=== PATIENT | male | born 1965 | race African-American/Black ===

== ENCOUNTER 2024-01-27 10:17 | Emergency (ER) | payer SELFPAY ==
[2024-01-27] MEDS ORDERED: ONDANSETRON 4 MG/2 ML VIAL ONE (10:28)
[2024-01-27] MEDS ORDERED: KETOROLAC 30 MG/ML INJ ONE (10:28)
[2024-01-27 10:35] LABS: Absolute Lymphocytes (CBC) 0.6 K/uL (0.7-4.9); Absolute Monocytes 0.2 K/uL (0.1-1.3); Absolute Neutrophil 4.7 K/uL (1.8-8.0); Basophils % 0.6 % (0-1.3); Eosinophils % 0.6 % (0-4.4); Hematocrit 39.2 % (39.6-49.0); Hemoglobin 12.5 g/dL (13.6-17.9); Lymphocytes % 10.8 % (15.3-44.8); MCH 26.3 pg (27.0-35.0); MCHC 31.9 g/dL (32.0-36.0); MCV 82.5 fL (80-100); MPV 7.3 fL (7.6-11.3); Monocytes % 4.2 % (3.3-12.3); Neutrophils % 83.8 % (41.7-73.7); Platelets 287 thou/uL (152-406); RBC Red Blood Cell Count 4.74 M/uL (4.33-5.43); Red Cell Distribution Width 13.7 % (12.1-15.2)
[2024-01-27 10:51] LABS: Albumin 3.7 g/dL (3.4-5.0); Anion Gap 7.3 mEq/L (5.0-15.0); Bilirubin Total 0.5 mg/dL (0.2-1.0); Globulin 3.6 g/dL (2.3-3.5); Potassium 3.3 mEq/L (3.5-5.1); Protein, Total 7.3 g/dL (6.4-8.2)
--- NOTE | 2024-01-27 10:54 | RAD REPORT ---
EXAMINATION: CT ABDOMEN AND PELVIS WITHOUT CONTRAST CLINICAL INDICATION: Abdominal pain TECHNIQUE: CT abdomen and pelvis was performed, as per department protocol. IV contrast and oral was not administered.Axial, sagittal and coronal reconstructions were obtained. One or more of the following dose reduction techniques were used: Automated exposure control, adjustment of the mA and/o r kV according to the patient size, and/or iterative reconstruction. Unless otherwise specified, incidental findings do not require dedicated imaging follow-up. [id number]. COMPARISON: No prior exam. FINDINGS: The lack of intravenous and oral contrast limits evaluation of solid organs, vessels and bowel. The liver, spleen, pancreas, and adrenals appear grossly normal. Multiple, bilateral renal calculi. No right hydronephrosis. Tiny low-density areas within the right kidney probably cysts. 6.3 cm cystic mass left kidney contains peripheral calcification. Mild left hydronephrosis. Left perirenal stranding and ill-defined fluid likely pyelosinus extravasat ion.. 4 mm calculus distal left ureter near the UVJ. Several small bladder calculi. No evidence of diverticulitis IMPRESSION: 4 mm calculus distal left ureter near the UVJ with mild left hydronephrosis. 6.3 cm cystic mass left kidney. Nonemergent renal ultrasound recommended
[2024-01-27 12:08] LABS: Sqamous Epithelial <5 /HPF (None Seen); Urine Bacteria None Seen /HPF (<20); Urine Bilirubin NEGATIVE (Negative); Urine Blood 1+ (Negative); Urine Clarity Clear (Clear); Urine Color Light-Yellow (Yellow); Urine Culture Reflex Order NOT NEEDED; Urine Glucose 2+ (Negative); Urine Ketones NEGATIVE (Negative); Urine Microscopic Reflex YN ORDER UMIC; Urine Mucus Slight /HPF (None Seen); Urine Nitrite NEGATIVE (Negative); Urine Protein NEGATIVE (Negative); Urine RBC 21-50 /HPF (None Seen); Urine Urobilinogen Normal (Normal); Urine WBC <5 /HPF (<5); Urine pH 6.5 (5.0-7.0)
[2024-01-27 12:13] LABS: Barbiturates NEGATIVE (NEGATIVE); Benzodiazepines NEGATIVE (NEGATIVE); Cocaine NEGATIVE (NEGATIVE); METHAMPHETAM NEGATIVE (NEGATIVE); Methadone NEGATIVE (NEGATIVE); Opiates NEGATIVE (NEGATIVE); Phencyclidine NEGATIVE (NEGATIVE); THC Cannibis NEGATIVE (NEGATIVE)
--- NOTE | 2024-01-27 12:16 | ER ---
Nurse's Notes [facility] Name: Jc Lombardi Jr Age: 58 yrs Sex: Male : 1965 Arrival Date: 01/27/2024 Time: 10:17 Bed 8 Private MD: Diagnosis: Ureterolithiasis, renal colic, left flank pain Presentation: 01/26 10:19 Chief complaint: EMS states: "toned out for sudden onset of lower back pain that mb9 radiates to LLQ. Pt also N/V.". Coronavirus screen: Vaccine status: Patient reports being unvaccinated. Ebola Screen: No symptoms or risks identified at this time. Initial Sepsis Screen: Does the patient meet any 2 criteria? No. Patient's initial sepsis screen is negative. Does the patient have a suspected source of infection? No. Patient's initial sepsis screen is negative. Risk Assessment: Do you want to hurt yourself or someone else? Patient reports no desire to harm self or others. Onset of symptoms was January 27, 2024. 10:19 Acuity: WADE 3 mb9 10:19 Method Of Arrival: EMS: [facility] mb9 Triage Assessment: 10:20 General: Appears uncomfortable, Behavior is anxious. Pain: Complains of pain in back mb9 Pain radiates to abdomen Pain at worst was 10 out of 10 on a pain scale. Quality of pain is described as throbbing, Pain began suddenly, Is continuous. EENT: No signs and/or symptoms were reported regarding the EENT system. Neuro: Mcnulty Agitation-Sedation Scale (RASS): 0 - Alert and Calm Level of Consciousness is awake, alert, obeys commands, Oriented to person, place, time, situation, Appropriate for age. Cardiovascular: Patient's skin is warm and dry. Respiratory: Airway is patent Respiratory effort is even, unlabored, Respiratory pattern is regular, symmetrical. GI: Abdomen is flat, non-distended, Bowel sounds present X 4 quads. : No signs and/or symptoms were reported regarding the genitourinary system. Derm: Skin is pink, warm \\T\\ dry. Musculoskeletal: Range of motion: intact in all extremities. Historical: - Allergies: 10:20 No Known Allergies; mb9 - Home Meds: 10:20 aspirin 81 mg Oral capsule [Active]; mb9 - PMHx: 10:20 None; mb9 - PSHx: 10:20 None; mb9 - Immunization history:: Adult Immunizations up to date. - Infectious Disease History:: Denies. - Social history:: Smoking status: Patient reports use of chewing tobacco. Screenin:25 [facility] ED Fall Risk Assessment (Adult) History of falling in the last 3 months, mb9 including since admission No falls in past 3 months (0 pts) Confusion or Disorientation No (0 pts) Intoxicated or Sedated No (0 pts) Impaired Gait No (0 pts) Mobility Assist Device Used No (0 pt) Altered Elimination No (0 pt) Score/Fall Risk Level 0 - 2 = Low Risk Oriented to surroundings, Maintained a safe environment, Educated pt \\T\\ family on fall prevention, incl call for assistance when getting out of bed. Abuse screen: Denies threats or abuse. Nutritional screening: No deficits noted. Tuberculosis screening: No symptoms or risk factors identified. Assessment: 10:22 Reassessment: see triage assessment. mb9 10:22 General: pt drowsy and states pain feels better all of a sudden. ERP notified.. mb9 11:30 Reassessment: Patient appears in no apparent distress at this time. Patient and/or mb9 family updated on plan of care and expected duration. Pain level reassessed. Patient states feeling better. Patient states symptoms have improved. 12:24 Reassessment: No changes from previously documented assessment. Patient and/or family mb9 updated on plan of care and expected duration. Pain level reassessed. Patient is alert, oriented x 3, equal unlabored respirations, skin warm/dry/pink. Vital Signs: 10:19 BP 174 / 89; Pulse 59; Resp 15; Temp 97.6; Pulse Ox 100% ; Weight 83.91 kg; Height 5 mb9 ft. 7 in. ; Pain 10/10; 11:24 BP 153 / 77; Pulse 60; Resp 16; Pulse Ox 98% on R/A; mb9 12:25 BP 145 / 79; Pulse 62; Resp 16; Pulse Ox 100% on R/A; mb9 10:19 Body Mass Index 28.97 (83.91 kg, 170.18 cm) mb9 10:19 Pain Scale: Adult mb9 ED Course: 10:18 Patient arrived in ED. mb9 10:18 Arm band placed on. mb9 10:19 Megha Young MD is Attending Physician. sp3 10:20 Triage completed. mb9 10:20 Selam Peraza, RN is Primary Nurse. mb9 10:22 Initial lab(s) drawn, by me, sent to lab. Inserted saline lock: 20 gauge in right mb9 antecubital area, using aseptic technique. Blood collected. Flushed with 10 mL NS. 10:25 Bed in low position. Call light in reach. Side rails up X 1. Provided Education on: mb9 press call light if needing anything. Client placed on continuous cardiac and pulse oximetry monitoring. NIBP monitoring applied. 10:40 CT Abd/Pelvis - Without Contrast In Process Unspecified. EDMS 12:15 Skyler Agustin MD is Referral Physician. sp3 12:25 No provider procedures requiring assistance completed. IV discontinued, intact, mb9 bleeding controlled, No redness/swelling at site. Pressure dressing applied. Administered Medications: 10:30 Drug: Ondansetron IVP 4 mg IVP once; over 2 minutes Route: IVP; Site: right antecubital;mb9 11:47 Follow up: Response: No adverse reaction mb9 10:36 Drug: TORadol - Ketorolac IVP 15 mg IVP once Route: IVP; Site: right antecubital; mb9 11:47 Follow up: Response: No adverse reaction mb9 Medication: 12:25 VIS not applicable for this client. mb9 Outcome: 12:15 Discharge ordered by . sp3 12:25 Discharged to home ambulatory, mb9 12:25 Condition: stable 12:25 Discharge instructions given to patient, Instructed on discharge instructions, follow up and referral plans. Demonstrated understanding of instructions, follow-up care, medications, Prescriptions given X 2, 12:25 Patient left the ED. mb9 Signatures: Dispatcher [employer] EDIL Megha Young MD MD sp3 Selam Peraza, RN RN mb9
--- NOTE | 2024-01-27 12:16 | EDPHYS ---
Physician Documentation [facility] Name: Jc Lombardi Jr Age: 58 yrs Sex: Male : 1965 Arrival Date: 01/27/2024 Time: 10:17 Bed 8 Private MD: ED Physician Megha Young HPI: 01/26 10:32 This 58 yrs old Male presents to ER via EMS with complaints of Back Pain. sp3 10:32 58-year-old male with no past medical history presents with low back pain and sp3 left-sided flank pain since early this morning. EMS was activated to find patient complaining of the symptoms which then progressed to writhing pain and has now returned back to pain without significant movement on the patient's part. Patient is interactive but minimally so and presents with an odd affect. Therefore review of systems, history and physical are limited due to the circumstances. Limited conversation yields patient denying fever, headache, neck pain, chest pain, shortness of breath, rash, syncope, drug use, alcohol use, travel history, known sick contacts, or any other signs or symptoms on ROS at this time. He denies having prior kidney stone or any urinary complaints.. Historical: - Allergies: 10:20 No Known Allergies; mb9 - Home Meds: 10:20 aspirin 81 mg Oral capsule [Active]; mb9 - PMHx: 10:20 None; mb9 - PSHx: 10:20 None; mb9 - Immunization history:: Adult Immunizations up to date. - Infectious Disease History:: Denies. - Social history:: Smoking status: Patient reports use of chewing tobacco. ROS: 10:33 Unable to obtain ROS due to patient being uncooperative, sp3 Exam: 10:33 Constitutional: This is a well developed, well nourished patient who is awake, alert, sp3 and in no acute distress. Head/Face: Normocephalic, atraumatic. Neck: Trachea midline, no thyromegaly or masses palpated, and no cervical lymphadenopathy. Supple, full range of motion without nuchal rigidity, or vertebral point tenderness. No Meningismus. Chest/axilla: Normal chest wall appearance and motion. Nontender with no deformity. No lesions are appreciated. Cardiovascular: Regular rate and rhythm with a normal S1 and S2. No gallops, murmurs, or rubs. Normal PMI, no JVD. No pulse deficits. Respiratory: Lungs have equal breath sounds bilaterally, clear to auscultation and percussion. No rales, rhonchi or wheezes noted. No increased work of breathing, no retractions or nasal flaring. Skin: Warm, dry with normal turgor. Normal color with no rashes, no lesions, and no evidence of cellulitis. MS/ Extremity: Pulses equal, no cyanosis. Neurovascular intact. Full, normal range of motion. 10:33 Abdomen/GI: Mild wounds to suprapubic pain. Back not assessed., 10:33 Psych: Patient with flat affect and minimal conversation. Denies SI, HI or psychosis.. 10:33 Unable to obtain exam due to patient being uncooperative, Vital Signs: 10:19 BP 174 / 89; Pulse 59; Resp 15; Temp 97.6; Pulse Ox 100% ; Weight 83.91 kg; Height 5 mb9 ft. 7 in. ; Pain 10/10; 11:24 BP 153 / 77; Pulse 60; Resp 16; Pulse Ox 98% on R/A; mb9 12:25 BP 145 / 79; Pulse 62; Resp 16; Pulse Ox 100% on R/A; mb9 10:19 Body Mass Index 28.97 (83.91 kg, 170.18 cm) mb9 10:19 Pain Scale: Adult mb9 MDM: 10:20 Medical Screening Exam initiated sp3 10:34 Data reviewed: vital signs, nurses notes, lab test result(s), radiologic studies. ED sp3 course: 58-year-old male with back pain and brief episode of writhing pain while here appearing like typical patient with ureterolithiasis. Differential diagnosis includes musculoskeletal pain, UTI/pyelonephritis spectrum, kidney stone/ureterolithiasis spectrum, among others. Workup will include CT scan of the abdomen pelvis noncontrast, general laboratory values including UA and UDS, and general supportive care. Vital signs currently normal with mild bump in blood pressure. Patient does not appear to be in any distress. Disposition pending workup and patient course.. 12:14 ED course: 4 mm kidney stone at left UVJ noted. Remainder workup negative. Patient is sp3 improved and we will discharge home on p.o. meds and urology follow-up.. 01/26 10:21 Order name: CBC with Diff; Complete Time: 10:59 sp3 01/26 10:21 Order name: CMP; Complete Time: 10:59 sp3 01/26 10:21 Order name: Lipase; Complete Time: 10:59 sp3 01/26 10:21 Order name: Urinalysis w/ reflexes; Complete Time: 12:14 sp3 01/26 10:21 Order name: UDS; Complete Time: 12:14 sp3 01/26 10:21 Order name: CT Abd/Pelvis - Without Contrast; Complete Time: 10:59 sp3 01/26 10:21 Order name: IV Saline Lock; Complete Time: 10:24 sp3 01/26 10:21 Order name: Labs collected and sent; Complete Time: 10:24 sp3 01/26 10:21 Order name: NPO; Complete Time: 10:24 sp3 Administered Medications: 10:30 Drug: Ondansetron IVP 4 mg IVP once; over 2 minutes Route: IVP; Site: right antecubital;mb9 11:47 Follow up: Response: No adverse reaction mb9 10:36 Drug: TORadol - Ketorolac IVP 15 mg IVP once Route: IVP; Site: right antecubital; mb9 11:47 Follow up: Response: No adverse reaction mb9 Disposition Summary: 01/27/24 12:15 Discharge Ordered Notes: Location: Home sp3 Condition: Stable sp3 Diagnosis - Ureterolithiasis, renal colic, left flank pain sp3 Followup: sp3 - With: Private Physician - When: Upon discharge from the Emergency Department - Reason: Continuance of care Followup: sp3 - With: Skyler Agustin MD - When: Upon discharge from the Emergency Department - Reason: Recheck today's complaints Discharge Instructions: - Discharge Summary Sheet sp3 - Kidney Stones sp3 - Dietary Guidelines to Help Prevent Kidney Stones sp3 Forms: - Medication Reconciliation Form sp3 - Antibiotic Education sp3 - Prescription Opioid Use sp3 - Patient Portal Instructions sp3 - Leadership Thank You Letter sp3 Prescriptions: - Flomax 0.4 mg Oral capsule - take 1 capsule ORAL route every 24 hours; 5 capsule; Refills: 0, Product sp3 Selection Permitted - Diclofenac Sodium 75 mg Oral Tablet Sustained Release - take 1 tablet ORAL route 2 times per day; 30 tablet; Refills: 0, Product sp3 Selection Permitted Signatures: Dispatcher [employer] EDMS Megha Young MD MD sp3 Selam Peraza RN RN mb9 Corrections: (The following items were deleted from the chart) 10: 10:22 CBC+H.LAB.BRZ ordered. EDMS EDMS 10: 10:22 COMPREHENSIVE METABOLIC PANEL+C.LAB.BRZ ordered. EDMS EDMS 10: 10:22 LIPASE+C.LAB.BRZ ordered. EDMS EDMS 10: 10:22 Urinalysis+U.LAB.BRZ ordered. EDMS EDMS 10: 10:22 URINE DRUG SCREEN+UC.LAB.BRZ ordered. EDMS EDMS 10: 10:22 Abdomen Pelvis Wo Con+CT.RAD.BRZ ordered. EDMS EDMS
[2024-01-27 12:29] VITALS: TEMP 97.6
[2024-01-27 12:32] VITALS: BP 145/79; O2SAT 100
== END 2024-01-27 12:25 | disposition home or self-care (01) ==
LOC: ER 10:17
DX: N20.1 Calculus of ureter (principal); N23 Unspecified renal colic; Z79.82 Long term (current) use of aspirin
CPT/HCPCS: 36415; 74176; 80053; 80307; 81001; 83690; 85025; J2405